=== PATIENT | female | born 1990 | race Two or more races ===

== ENCOUNTER 2023-09-19 07:09 | Day surgery (SDC) | payer OTHER ==
[2023-09-13 10:15] LABS: HEMATOCRIT 35.2 % (36.0-45.00); MEAN CORPUSCULAR HEMOGLOBIN 28.3 pg (27.00-32.0); PLATELET COUNT 400 K/uL (150-450); RED BLOOD COUNT 4.24 M/uL (4.00-6.00); RED CELL DISTRIBUTION WIDTH 14.2 % (11.5-14.5)
[2023-09-13 10:20] LABS: PH,URINE 5.5 (5.0-8.0); URINE APPEARANCE Clear; URINE BILIRRUBIN Negative (NEGATIVE); URINE BLOOD Large; URINE COLOR Yellow; URINE LEUKOCYTE Small; URINE NITRATE Negative; URINE PROTEIN Negative (NEGATIVE); URINE UROBILINOGEN 0.2 E.U./dl
[2023-09-13 10:23] LABS: URINE BACTERIA 367.9 uL (0.0-1933); URINE EPITHELIAL CELLS 8.9 uL (0.0-38.8); URINE RBC 6.1 uL (0.0-20.8); URINE WBC 34.1 uL (0.0-23.2)
[2023-09-13 10:46] LABS: URINE GLUCOSE 100 MG/DL (NEGATIVE)
[2023-09-13 11:14] LABS: INR 0.99; PARTIAL THROMBOPLASTIN TIME 28.5 SECONDS (22.0-34.0); PROTHROMBIN TIME 10.4 SECONDS (9.0-11.5)
[2023-09-13 11:39] LABS: ALBUMIN 3.7 gm/dL (3.4-5.0); BILIRUBIN TOTAL 0.45 mg/dL (0.3-1.2); CALCIUM 9.1 mg/dL (8.5-10.1); CREATININE SERUM 0.72 mg/dL (0.55-1.02); GFR 92.18; GLOBULINA 3.7 G/DL (2.4-3.5); POTASSIUM 4.35 mEq/L (3.5-5.1); TOTAL PROTEIN 7.4 gm/dL (6.4-8.2)
[~2023-09-19 07:09] MED LIST: ATORVASTATIN CA10 MG PO; EZETIMIBE10 MG PO; HUMALOG100 UNIT/2 SQ; LANTUS SOL100 UNIT/1 SQ; RESTORIL15 M1; ZOLOFT100 MG PO; ZOLOFT50 MG PO
[2023-09-19] MEDS ORDERED: POVIDONE-IODINE 118 ML BOTT TOP ONE (13:00)
== END 2023-09-19 22:35 | disposition home or self-care (01) ==
LOC: CIR.AMB 07:09
PROVIDERS: ATTEND Obstetrics & Gynecology
DX: N93.8 Other specified abnormal uterine and vaginal bleeding (principal); N84.0 Polyp of corpus uteri; N72 Inflammatory disease of cervix uteri; Z91.012 Allergy to eggs; Z91.013 Allergy to seafood; Z97.5 Presence of (intrauterine) contraceptive device